=== PATIENT | female | born 1975 | race African-American/Black ===

== ENCOUNTER → 2017-07-10 10:29 | Outpatient (CLI) | payer OTHER | END | disposition home or self-care (01) | LOC: D.RAD 10:29 | DX: Z02.71 Encounter for disability determination (principal) ==

== ENCOUNTER 2018-11-22 17:03 | Emergency (ER) | payer MEDICAID ==
[~2018-11-22] VITALS: Ht 154.9 cm; Wt 63.6 kg
[2018-11-22 17:12] VITALS: Ht 154.9 cm; Wt 63.6 kg
[2018-11-22 18:17] LABS: BASOPHILS 0.2 % (0-2); EOSINOPHILS 1.4 % (0-7); HEMATOCRIT 36.1 % (36.0-48.0); IMMATURE GRANULOCYTES 0.3 % (0-5); LYMPHOCYTES 35.2 % (15-50); MCH 28.4 pg (26.0-34.0); MCHC 33.2 g/dL (31.0-37.0); MCV 85.5 fL (80.0-100.0); MEAN PLATELET VOLUME 10.5 fL (7.4-10.4); MONOCYTES 6.8 % (2-11); NEUTROPHILS 56.1 % (40-80); PLATELET COUNT 303 10x3/uL (130-400); RBC 4.22 10x6/uL (4.00-5.40); RDW 13.7 % (11.5-14.5); WBC 9.6 10x3/uL (4.8-10.8)
[2018-11-22 18:24] LABS: APTT 29.7 SECONDS (22.8-39.4)
[2018-11-22 18:25] LABS: INR 0.98 (0.85-1.17); PROTIME 12.5 SECONDS (11.6-15.0)
[2018-11-22 18:46] LABS: ALBUMIN 3.8 g/dL (3.4-5.0); ALKALINE PHOSPHATASE 84 U/L (46-116); ALT (SGPT) 28 U/L (10-68); BILIRUBIN - TOTAL 0.25 mg/dL (0.2-1.3); CALC OSMOLALITY 280 mosm/kg (275-300); CALCIUM 9.2 mg/dL (8.5-10.1); CARBON DIOXIDE 30.1 mmol/L (21.0-32.0); CHLORIDE - SERUM 104 mmol/L (98-107); CREATININE - SERUM 0.9 mg/dL (0.6-1.3); GLUCOSE 90 mg/dL (74-106); POTASSIUM - SERUM 3.2 mmol/L (3.5-5.1); PROTEIN - SERUM 8.4 g/dL (6.4-8.2); SODIUM 142 mmol/L (136-145); UREA NITROGEN 7 mg/dL (7-18); eGFR NON AFRICAN AMERICAN 72 mL/min (90-120)
[2018-11-22 18:56] LABS: CKMB 1.5 U/L (0.0-3.6); CREATINE KINASE 434 UL (21-215); MAGNESIUM - SERUM 2.2 mg/dL (1.8-2.4); TROPONIN-I < 0.017 ng/mL (0.000-0.060)
[2018-11-22 22:34] LABS: CKMB 1.3 U/L (0.0-3.6); CREATINE KINASE 447 UL (21-215); TROPONIN-I < 0.017 ng/mL (0.000-0.060)
[2018-11-23] MEDS ORDERED: CATAPRES0.2 MG PO (00:22)
[2018-11-23 00:30] VITALS: BP 145/91
== END 2018-11-23 00:33 | disposition home or self-care (01) ==
LOC: D.ER 17:03
PROVIDERS: Family Medicine
DX: R07.9 Chest pain, unspecified (principal); I10 Essential (primary) hypertension; F17.210 Nicotine dependence, cigarettes, uncomplicated